=== PATIENT | female | born 1990 | race Caucasian/White ===

== ENCOUNTER 2020-11-18 19:14 | Emergency (ER) | payer BC, OTHER ==
[2020-11-18 19:40] VITALS: BP 116/81; PULSE 74; TEMP 98.7; BMI 35.2
[2020-11-18] MEDS ORDERED: DIPHTH,PERTUSS(ACELL),TET 0.5 ML DISP.SYRIN IM ONE ×2 (19:40→19:41)
== END 2020-11-18 19:49 | disposition home or self-care (01) ==
LOC: FER 19:14
PROC: 3E0234Z Introduction of Serum, Toxoid and Vaccine into Muscle, Percutaneous Approach (ICD-10-PCS; principal; 2020-11-18)
DX: S01.112A Laceration without foreign body of left eyelid and periocular area, initial encounter (principal)
CPT/HCPCS: 90715; 99284-25

== ENCOUNTER 2022-10-03 17:21 | Emergency (ER) | payer BC, OTHER ==
[2022-10-03 17:34] VITALS: BP 94/70; PULSE 77; RESP 16; TEMP 97.9; BMI 33.6
[2022-10-03] MEDS ORDERED: FAMOTIDINE 20 MG/50 ML IVPB 20 MG/50 ML MG IVPB ONE ×2 (17:39→17:44)
[2022-10-03] MEDS ORDERED: ONDANSETRON 4 MG/2 ML VIAL IVPUSH ONE (17:39)
[2022-10-03] MEDS ORDERED: SUCRALFATE 1 GM TABLET (FP) PO ONE (17:39)
[2022-10-03] MEDS ORDERED: PANTOPRAZOLE SODIUM 40 MG VIAL IVPUSH ONE (17:39)
[2022-10-03] MEDS ORDERED: SUCRALFATE 1 GM/10 ML UNIT DOSE CUPS ONE (17:44)
[2022-10-03] MEDS ORDERED: ONDANSETRON 4 MG/2 ML VIAL ONE (17:44)
[2022-10-03] MEDS ORDERED: PANTOPRAZOLE SODIUM 40 MG VIAL ONE (17:44)
[2022-10-03 18:29] LABS: HEMATOCRIT 36.9 % (32.4-45.2); MCH 27.6 pg (25.7-33.7); MCHC 32.6 g/dl (32.0-36.0); MEAN CELL VOLUME 84.9 fl (80-96); MEAN PLT VOLUME 9.1 fl (7.5-11.1); PLATELET COUNT 244.4 10^3/uL (134-434); RBC 4.35 10^6/uL (3.60-5.2); RDW 14.7 % (11.6-15.6)
[2022-10-03 18:38] LABS: ALBUMIN 3.5 g/dl (3.4-5.0); BILIRUBIN,TOTAL 0.5 mg/dl (0.2-1); CALCIUM 8.9 mg/dl (8.5-10); CREATININE 0.8 mg/dl (0.55-1.3); POTASSIUM 3.9 mmol/L (3.5-5.1); TOT PROT 6.7 g/dl (6.4-8.2)
[2022-10-03 19:35] LABS: PLATELET ESTIMATE ADEQUATE
== END 2022-10-03 23:42 | disposition home or self-care (01) ==
LOC: FER 17:21
PROC: 3E033GC Introduction of Other Therapeutic Substance into Peripheral Vein, Percutaneous Approach (ICD-10-PCS; principal; 2022-10-03)
PROC: 3E033GC Introduction of Other Therapeutic Substance into Peripheral Vein, Percutaneous Approach (ICD-10-PCS; 2022-10-03)
PROC: 3E033GC Introduction of Other Therapeutic Substance into Peripheral Vein, Percutaneous Approach (ICD-10-PCS; 2022-10-03)
DX: R11.2 Nausea with vomiting, unspecified (principal); R10.11 Right upper quadrant pain
CPT/HCPCS: 36415; 74177-TC; 76705-TC; 80053; 83690; 84703; 85025; 99285-25